=== PATIENT | male | born 1975 | race Caucasian/White ===

== ENCOUNTER 2019-07-19 13:28 | Emergency (ER) | payer BC ==
[2019-07-19] MEDS ORDERED: Aspirin 81 MG Tab.Chew PO ONE (13:32)
--- NOTE | 2019-07-19 14:03 | EDM.PDOC ---
ED HPI GENERAL MEDICAL PROBLEM - General Chief Complaint: Cardiovascular Problem Stated Complaint: CHEST DISCOMFORT Time Seen by Provider: 07/19/19 13:58 Source of Information: Reports: Patient History Limitations: Reports: No Limitations - History of Present Illness INITIAL COMMENTS - FREE TEXT/NARRATIVE: Patient presents to ED for chest pain. Upon my initial questioning about the chest pain, patient started taking off his EKG lead pad stating he doesn't like the sound of human voices. I informed him that I can not evaluate him without talking to him. Patient then left ED after signing any AMA form - Related Data Allergies Allergy/AdvReac Type Severity Reaction Status Date / Time No Known Allergies Allergy Verified 07/19/19 13:38 Home Meds: Home Meds . [No Known Home Meds] 07/19/19 [History] Past Medical History Psychiatric History: Reports: Anxiety - Infectious Disease History Infectious Disease History: Reports: Chicken Pox, Hepatitis C Social & Family History - Family History Family Medical History: Noncontributory - Tobacco Use Smoking Status *Q: Current Every Day Smoker Years of Tobacco use: 20 Packs/Tins Daily: 1 - Alcohol Use Days Per Week of Alcohol Use: 3 Number of Drinks Per Day: 3 Total Drinks Per Week: 9 - Recreational Drug Use Recreational Drug Use: No ED ROS GENERAL - Review of Systems Review Of Systems: ROS reveals no pertinent complaints other than HPI. ED EXAM, GENERAL - Physical Exam Exam: See Below (see dictation) Course - Vital Signs Last Recorded V/S: Last Vital Signs Temp 97.9 F 07/19/19 13:35 Pulse 83 07/19/19 13:35 Resp 18 07/19/19 13:35 BP 136/92 H 07/19/19 13:35 Pulse Ox 97 07/19/19 13:35 - Orders/Labs/Meds Orders: Active Orders 24 hr Category Date Time Status EKG Documentation Completion [RC] STAT Care 07/19/19 13:32 Active Chest 1V Frontal [CR] Stat Exams 07/19/19 13:32 Ordered CBC WITH AUTO DIFF [HEME] Stat Lab 07/19/19 13:32 Ordered COMPREHENSIVE METABOLIC PN,CMP [CHEM] Stat Lab 07/19/19 13:32 Ordered TROPONIN I [CHEM] Stat Lab 07/19/19 13:32 Ordered Meds: Medications Discontinued Medications Generic Name Dose Route Start Last Admin Trade Name Freq PRN Reason Stop Dose Admin Aspirin 324 mg 07/19/19 13:32 Aspirin PO 07/19/19 13:33 ONETIME ONE Departure - Departure Time of Disposition: 14:03 Disposition: Against Medical Advice 07 Condition: Good Clinical Impression: Left against medical advice
[2019-07-19 14:27] LABS: BLOOD UREA NITROGEN,BUN 14 mg/dL (7.0-18.0); CARBON DIOXIDE,CO2 26.8 mmol/L (21.0-32.0); CHLORIDE,CL 103 mmol/L (98-107); GLUCOSE RANDOM 168 mg/dL (74-106); POTASSIUM,K 3.9 mmol/L (3.5-5.1); SODIUM,NA 139 mmol/L (136-148)
== END 2019-07-19 13:55 | disposition left against medical advice (07) ==
LOC: MW.ED 13:28
DX: Z53.21 Procedure and treatment not carried out due to patient leaving prior to being seen by health care provider (principal)
CPT/HCPCS: 36415; 80053; 84484; 85025; 93005

== ENCOUNTER 2019-07-19 14:13 | Emergency (ER) | payer BC | END 2019-07-19 14:41 | disposition left against medical advice (07) | LOC: MW.ED 14:13 | DX: Z53.21 Procedure and treatment not carried out due to patient leaving prior to being seen by health care provider (principal) ==